=== PATIENT | female | born 1955 | race Caucasian/White ===

== ENCOUNTER 2023-04-15 13:03 | Outpatient (CLI) | payer MEDICARE, OTHER | END 2023-04-15 13:04 | disposition home or self-care (01) | LOC: CSHMRI 13:03 | PROVIDERS: ATTEND Specialist | DX: M47.27 Other spondylosis with radiculopathy, lumbosacral region (principal); M41.9 Scoliosis, unspecified; M48.07 Spinal stenosis, lumbosacral region; M48.061 Spinal stenosis, lumbar region without neurogenic claudication | CPT/HCPCS: 72148 ==